=== PATIENT | female | born 1990 | race Hispanic/Latino ===

== ENCOUNTER 2022-04-09 19:14 | Emergency (ER) | payer OTHER ==
[2022-04-09] MEDS ORDERED: Ibuprofen 200 MG TAB ONE (21:00)
[2022-04-09] MEDS ORDERED: Acetaminophen 500 MG TAB ONE (21:00)
== END 2022-04-09 20:45 | disposition home or self-care (01) ==
LOC: CSHERS 19:14
DX: M54.50 Low back pain, unspecified (principal); R51.9 Headache, unspecified; V89.2XXA Person injured in unspecified motor-vehicle accident, traffic, initial encounter
CPT/HCPCS: 99283